=== PATIENT | male | born 1970 | race American Indian/Alaskan Native ===

== ENCOUNTER 2017-07-22 21:56 | Emergency (ER) | payer MEDICAID, OTHER ==
[2017-07-22] MEDS ORDERED: LORazepam 2 MG/ML Syringe ONE (22:07)
[2017-07-22] MEDS ORDERED: LORazepam 2 MG/ML Syringe IM ONE ×3 (22:11→22:15)
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
[2017-07-22 22:37] LABS: CHLORIDE,CL 101 mmol/L (101-111); SODIUM,NA 138 mmol/L (135-145)
[2017-07-22] MEDS ORDERED: Midazolam 1 MG/ML 2 ML SDV IVPUSH ONE (23:19)
[2017-07-23] MEDS ORDERED: Flumazenil 0.1 MG/ML 5 ML MDV IVPUSH ONE (00:52)
== END 2017-07-23 03:08 ==
LOC: EDBD → DL.ED 21:56 → EDUNIT# 22:04 → DL.ED 22:04
DX: S01.511A Laceration without foreign body of lip, initial encounter (principal); R68.84 Jaw pain; F10.129 Alcohol abuse with intoxication, unspecified; Y90.8 Blood alcohol level of 240 mg/100 ml or more; W17.89XA Other fall from one level to another, initial encounter; W22.8XXA Striking against or struck by other objects, initial encounter
CPT/HCPCS: 36415; 70450; 70486; 72125; 80053; 85025; 96374; 96375; 99285; G0480; J2060; J2250; J3490

== ENCOUNTER 2020-06-26 23:49 | Emergency (ER) | payer MEDICAID, OTHER ==
[2020-06-27 00:07] VITALS: PULSE 73
[2020-06-27] MEDS ORDERED: MVI, Adult with Vitamin K 10 ML, Folic Acid 1 MG, Thiamine 100 MG in Lactated Ringers 1... IV ONE ×4 (00:10)
[2020-06-27 00:28] VITALS: BP 109/56
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
== END 2020-06-27 00:35 | disposition left against medical advice (07) ==
LOC: DL.ED 23:49
DX: F10.129 Alcohol abuse with intoxication, unspecified (principal)
CPT/HCPCS: 99283

== ENCOUNTER 2020-09-07 01:27 | Emergency (ER) | payer MEDICAID ==
[2020-09-07 01:50] VITALS: BP 116/73; PULSE 76
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
[2020-09-07] MEDS ORDERED: Lidocaine 2% with EPINEPHrine 1:200,000 20 ML SDV INJECT ONE (02:24)
== END 2020-09-07 02:45 | disposition home or self-care (01) ==
LOC: DL.ED 01:27
DX: S01.01XA Laceration without foreign body of scalp, initial encounter (principal); Y04.2XXA Assault by strike against or bumped into by another person, initial encounter
CPT/HCPCS: 12001; 70450; 72125; 99283; 99284-25

== ENCOUNTER 2020-09-22 11:38 | Emergency (ER) | payer MEDICAID ==
[2020-09-22 11:43] VITALS: BP 133/95; PULSE 65
--- NOTE | 2020-09-22 14:51 | EDM.PDOC ---
ED HPI GENERAL MEDICAL PROBLEM - General Chief Complaint: Laceration Stated Complaint: IN BY AMBULANCE Time Seen by Provider: 09/22/20 11:42 Source of Information: Reports: Patient, EMS, EMS Notes Reviewed History Limitations: Reports: No Limitations - History of Present Illness INITIAL COMMENTS - FREE TEXT/NARRATIVE: Patient is a 49-year-old male who presents to ER by [facility] with complaint of bleeding from head wound. Patient was seen in ER yesterday for a laceration to the left side of head, which was sutured. Patient presented to [facility] after bleeding he couldn't control. Clinic sent him by ambulance. Patient states he did not hit his head or have any new injury. Bleeding controlled upon arrival to ER. Onset: Unknown/Unsure Duration: Constant Location: Reports: Head Quality: Reports: Ache Severity: Mild Improves with: Reports: None Worsens with: Reports: None Associated Symptoms: Reports: No Other Symptoms Treatments HEARING AND SPEECH ASSISTANT: Reports: Other (see below) Other Treatments HEARING AND SPEECH ASSISTANT: head wrapped with 4x4 and kerlix Shoulder Pain Score (Numeric/FACES): 6 - Related Data Allergies Allergy/AdvReac Type Severity Reaction Status Date / Time No Known Allergies Allergy Verified 09/22/20 11:49 Home Meds: Home Meds . [No Known Home Meds] 12/06/14 [History] Past Medical History - Past Health History Medical/Surgical History: Denies Medical/Surgical History HEENT History: Reports: None Cardiovascular History: Reports: None Respiratory History: Reports: None Gastrointestinal History: Reports: None Genitourinary History: Reports: None Musculoskeletal History: Reports: Fracture Other Musculoskeletal History: hand Neurological History: Reports: None Psychiatric History: Reports: None Endocrine/Metabolic History: Reports: None Hematologic History: Reports: None Immunologic History: Reports: None Oncologic (Cancer) History: Reports: None Dermatologic History: Reports: None - Infectious Disease History Infectious Disease History: Reports: None - Past Surgical History Head Surgeries/Procedures: Reports: None GI Surgical History: Reports: Appendectomy Social & Family History - Family History Family Medical History: Unobtainable - Tobacco Use Tobacco Use Status *Q: Unknown Ever Used Tobacco - Caffeine Use Caffeine Use: Reports: Coffee, Soda - Recreational Drug Use Recreational Drug Use: No - Living Situation & Occupation Living situation: Reports: with Family ED ROS GENERAL - Review of Systems Review Of Systems: Comprehensive ROS is negative, except as noted in HPI. ED EXAM, SKIN/RASH Exam: See Below Exam Limited By: No Limitations General Appearance: Alert, WD/WN, No Apparent Distress Eye Exam: Bilateral Eye: EOMI, Normal Inspection, PERRL Ears: Normal External Exam, Normal Canal, Hearing Grossly Normal, Normal TMs Nose: Normal Inspection, Normal Mucosa, No Blood Throat/Mouth: Normal Inspection, Normal Lips, Normal Teeth, Normal Gums, Normal Oropharynx, Normal Voice, No Airway Compromise Head: Atraumatic, Normocephalic Neck: Normal Inspection, Supple, Non-Tender, Full Range of Motion Respiratory/Chest: No Respiratory Distress Cardiovascular: Normal Peripheral Pulses, Regular Rate, Rhythm, No Edema, No Gallop, No JVD, No Murmur, No Rub GI/Abdominal: Normal Bowel Sounds, Soft, Non-Tender, No Organomegaly, No Distention, No Abnormal Bruit, No Mass (Male) Exam: Deferred Rectal (Males) Exam: Deferred Back Exam: Normal Inspection, Full Range of Motion, NT Extremities: Normal Inspection, Normal Range of Motion, Non-Tender, No Pedal Edema, Normal Capillary Refill Neurological: Alert, Oriented, CN II-XII Intact, Normal Cognition, Normal Gait, Normal Reflexes, No Motor/Sensory Deficits Psychiatric: Normal Affect, Normal Mood Skin: Other (gaping wound--sutures torn to laceration to left upper forehead. ) Course - Vital Signs Last Recorded V/S: Last Vital Signs Temp 97.4 F 09/22/20 11:38 Pulse 65 09/22/20 11:38 Resp 18 09/22/20 11:38 BP 133/95 H 09/22/20 11:38 Pulse Ox 98 09/22/20 11:38 - Orders/Labs/Meds Labs: Laboratory Tests 09/22/20 Range/Units 13:51 WBC 10.7 H (5.0-10.0) 10^3/uL RBC 4.68 (4.6-6.2) 10^6/uL Hgb 15.2 D (14.0-18.0) g/dL Hct 44.4 (40.0-54.0) % MCV 94.9 D (80-100) fL MCH 32.5 (27.0-34.0) pg MCHC 34.2 (33.0-35.0) g/dL Plt Count 275 (150-450) 10^3/uL - Re-Assessments/Exams Free Text/Narrative Re-Assessment/Exam: 09/23/20 10:08 Clotted blood removed from the wound. Sutures were torn out of one side of the wound, so sutures were removed. Steri strips applied and wound covered. No bleeding at that time. Departure - Departure Time of Disposition: 14:50 Disposition: Home, Self-Care 01 Condition: Good Clinical Impression: Open wound - Discharge Information *PRESCRIPTION DRUG MONITORING PROGRAM REVIEWED*: No *COPY OF PRESCRIPTION DRUG MONITORING REPORT IN PATIENT KATIE: No Instructions: Laceration Care, Adult, [id number] Referrals: Vignesh Jesus [Primary Care Provider] - Forms: ED Department Discharge Additional Instructions: Follow up with your primary care facility Hold pressure if your head starts to bleed again Return to the ER with any further problems Sepsis Event Note (ED) - Evaluation Sepsis Screening Result: No Definite Risk
== END 2020-09-22 15:15 | disposition home or self-care (01) ==
LOC: DL.ED 11:38
DX: S01.81XA Laceration without foreign body of other part of head, initial encounter (principal); W26.8XXA Contact with other sharp object(s), not elsewhere classified, initial encounter
CPT/HCPCS: 36415; 85027; 99282; 99284

== ENCOUNTER 2021-07-29 04:09 | Emergency (ER) | payer MEDICAID ==
[2021-07-29 04:33] VITALS: BP 129/107; PULSE 83
[2021-07-29] MEDS ORDERED: MVI, Adult with Vitamin K 10 ML, Folic Acid 1 MG, Thiamine 100 MG in Lactated Ringers 1... IV ONE ×4 (04:45)
[2021-07-29] MEDS ORDERED: fentaNYL 100 MCG/2 ML SDV IVPUSH ONE (05:05)
[2021-07-29 05:06] LABS: ANION GAP 17.2 mEq/L (7-13); CHLORIDE,CL 108 mmol/L (98-107); SODIUM,NA 145 mmol/L (136-145)
[2021-07-29 06:08] LABS: MDMA (ECSTASY), URINE POSITIVE (NEGATIVE); METHAMPHETAMINES,URINE POSITIVE (NEGATIVE)
[2021-07-29 06:09] LABS: AMPHETAMINES,URINE NEGATIVE (NEGATIVE); BARBITURATES,URINE NEGATIVE (NEGATIVE); BENZODIAZEPINE,URINE NEGATIVE (NEGATIVE); METHADONE,URINE NEGATIVE (NEGATIVE); OPIATES,URINE NEGATIVE (NEGATIVE); OXYCODONE,URINE NEGATIVE (NEGATIVE); PHENCYCLIDINE,URINE NEGATIVE (NEGATIVE); TCA,URINE NEGATIVE (NEGATIVE)
== END 2021-07-29 12:01 | disposition home or self-care (01) ==
LOC: MERGE 04:09 → DL.ED 04:09
DX: S30.0XXA Contusion of lower back and pelvis, initial encounter (principal); F10.129 Alcohol abuse with intoxication, unspecified; Z72.0 Tobacco use; Y90.8 Blood alcohol level of 240 mg/100 ml or more; Z79.82 Long term (current) use of aspirin; W00.9XXA Unspecified fall due to ice and snow, initial encounter
CPT/HCPCS: 36415; 72131; 80053; 80305-QW; 80307; 81001; 82150; 83690; 85025; 96365; 96375; 99284-25; J3010; J3411; J3490; J7120

== ENCOUNTER 2021-09-03 01:52 | Emergency (ER) | payer MEDICAID ==
[2021-09-03 01:56] VITALS: BP 141/85; PULSE 70
[2021-09-03 02:23] LABS: ANION GAP 15.4 mEq/L (7-13); CHLORIDE,CL 107 mmol/L (98-107); SODIUM,NA 143 mmol/L (136-145)
== END 2021-09-03 02:42 ==
LOC: DL.ED 01:52
DX: F10.129 Alcohol abuse with intoxication, unspecified (principal); Z79.82 Long term (current) use of aspirin; Y90.8 Blood alcohol level of 240 mg/100 ml or more
CPT/HCPCS: 36415; 80053; 80307; 85025; 99282; 99283

== ENCOUNTER 2021-10-19 16:32 | Emergency (ER) | payer MEDICAID ==
[2021-10-19 16:45] VITALS: BP 100/76; PULSE 87
== END 2021-10-19 16:56 | disposition left against medical advice (07) ==
LOC: DL.ED 16:32
DX: S09.90XA Unspecified injury of head, initial encounter (principal); Z53.21 Procedure and treatment not carried out due to patient leaving prior to being seen by health care provider

== ENCOUNTER 2024-07-13 13:37 | Emergency (ER) | payer MEDICAID ==
[2024-07-13] MEDS: Iopamidol 612 MG/ML 100 ML Bottle IVPUSH ONE (13:19)
[2024-07-13] MEDS: LORazepam 2 MG/ML SDV IM ONE (13:22)
[2024-07-13] MEDS: diphenhydrAMINE 50 MG/ML SDV ONE (13:32)
[2024-07-13] MEDS: Haloperidol Lactate 5 MG/ML SDV ONE (13:32)
[~2024-07-13 13:37] MED LIST: Sodium Chloride 0.9% 10 ML Syringe FLUSH PRN
[2024-07-13] MEDS: Midazolam 5 MG/ML 10 ML MDV IV ONE (13:51)
[2024-07-13] MEDS: Midazolam 1 MG/ML 2 ML SDV ONE (13:51)
[2024-07-13] MEDS: diphenhydrAMINE 50 MG/ML SDV IM ONE (14:18)
[2024-07-13] MEDS: Haloperidol Lactate 5 MG/ML SDV IM ONE (14:18)
[2024-07-13] MEDS: LORazepam 2 MG/ML SDV IVPUSH ONE (14:20)
[2024-07-13 14:37] LABS: BASOPHILS PERCENT AUTO 0.6 % (0.0-1.0); EOSINOPHILS PERCENT AUTO 1.9 % (1.0-3.0); HEMATOCRIT 40.2 % (40.0-54.0); HEMOGLOBIN 13.2 g/dL (14.0-18.0); MEAN CORPUSCULAR HEMOGLOBIN 32.5 pg (27.0-34.0); MEAN CORPUSCULAR HGB CONC 32.8 g/dL (33.0-35.0); MONOCYTES PERCENT AUTO 5.5 % (2-8); PLATELET COUNT,PLT 210 10^3/uL (150-450); RED BLOOD CELL COUNT 4.06 10^6/uL (4.6-6.2)
[2024-07-13] MEDS: MVI, Adult with Vitamin K 10 ML, Folic Acid 1 MG, Thiamine 100 MG in Lactated Ringers 1... IV ONE (14:51)
[2024-07-13 14:57] LABS: PROTHROMBIN TIME 10.4 SEC (9.0-12.0); PTT,PARTIAL THROMBOPLSTIN TIME 26.2 SEC (22.0-34.0)
[2024-07-13 14:59] LABS: ALANINE AMINOTRANSFERASE,ALT 105 U/L (16-63); ALBUMIN 2.9 g/dL (3.4-5.0); ALKALINE PHOSPHATASE 72 U/L (46-116); ANION GAP 13.8 mEq/L (7-13); ASPARTATE AMNIOTRANSFERASE,AST 59 U/L (15-37); BILIRUBIN TOTAL 0.2 mg/dL (0.2-1.0); BLOOD UREA NITROGEN,BUN 10 mg/dL (7-18); BUN/CREATININE RATIO 11.4 (No establ ref range); CALCIUM 8.5 mg/dL (8.5-10.1); CARBON DIOXIDE,CO2 28 mmol/L (21-32); CHLORIDE,CL 112 mmol/L (98-107); CREATININE 0.88 mg/dL (0.70-1.30); GLUCOSE RANDOM 102 mg/dL (70-99); LIPASE 28 U/L (16-77); POTASSIUM,K 3.8 mmol/L (3.5-5.1); PROTEIN TOTAL,TP 6.8 g/dL (6.4-8.2); SODIUM,NA 150 mmol/L (136-145)
[2024-07-13 15:01] LABS: A/G RATIO 0.74; ESTIMATED GFR 103 mL/min (>=60); ETHANOL BLOOD MEDICAL 380 mg/dL (0)
[2024-07-13] MEDS: Diphtheria,Pertussis(Acell),Tetanus Vaccine 0.5 ML Syringe IM ONE (18:33)
[2024-07-13] MEDS ORDERED: Sodium Chloride 0.9% 1,000 ML IV ONE (21:12)
[2024-07-13 21:49] LABS: AMPHETAMINES,URINE NEGATIVE (NEGATIVE); BARBITURATES,URINE NEGATIVE (NEGATIVE); BENZODIAZEPINE,URINE POSITIVE (NEGATIVE); MDMA (ECSTASY), URINE NEGATIVE (NEGATIVE); METHADONE,URINE NEGATIVE (NEGATIVE); METHAMPHETAMINES,URINE NEGATIVE (NEGATIVE); OPIATES,URINE NEGATIVE (NEGATIVE); OXYCODONE,URINE NEGATIVE (NEGATIVE); PHENCYCLIDINE,URINE NEGATIVE (NEGATIVE); TCA,URINE NEGATIVE (NEGATIVE)
[2024-07-13 22:27] LABS: A/G RATIO 0.79; ALANINE AMINOTRANSFERASE,ALT 103 U/L (16-63); ALKALINE PHOSPHATASE 77 U/L (46-116); ANION GAP 4.8 mEq/L (7-13); ASPARTATE AMNIOTRANSFERASE,AST 61 U/L (15-37); BILIRUBIN TOTAL 0.2 mg/dL (0.2-1.0); BLOOD UREA NITROGEN,BUN 8 mg/dL (7-18); BUN/CREATININE RATIO 9.5 (No establ ref range); CALCIUM 8.7 mg/dL (8.5-10.1); CARBON DIOXIDE,CO2 29 mmol/L (21-32); CHLORIDE,CL 109 mmol/L (98-107); CREATININE 0.84 mg/dL (0.70-1.30); ESTIMATED GFR 105 mL/min (>=60); ETHANOL BLOOD MEDICAL 211 mg/dL (0); GLUCOSE RANDOM 82 mg/dL (70-99); POTASSIUM,K 3.8 mmol/L (3.5-5.1); PROTEIN TOTAL,TP 6.8 g/dL (6.4-8.2); SODIUM,NA 139 mmol/L (136-145)
== END 2024-07-13 23:12 | disposition home or self-care (01) ==
LOC: DL.ED 13:37
DX: E86.0 Dehydration (principal); F10.120 Alcohol abuse with intoxication, uncomplicated; E87.0 Hyperosmolality and hypernatremia; F12.10 Cannabis abuse, uncomplicated; R79.89 Other specified abnormal findings of blood chemistry; Z23 Encounter for immunization; Z79.82 Long term (current) use of aspirin; Y90.9 Presence of alcohol in blood, level not specified
CPT/HCPCS: 36415; 70450; 70486; 71045; 71260; 72125; 72170; 74177; 80053; 80305; 80307; 83690; 85025; 85610; 85730; 90471; 90715; 93005; 93010; 94762; 96365; 96375; 99284; 99285; J1200; J1630; J2060; J2250; J3411; J7120; Q9967; J3490

== ENCOUNTER 2025-02-05 19:06 | Emergency (ER) | payer MEDICAID ==
[2025-02-05 19:35] LABS: BASOPHILS PERCENT AUTO 0.3 % (0.0-1.0); EOSINOPHILS PERCENT AUTO 0.0 % (1.0-3.0); LYMPHOCYTES PERCENT AUTO 29.4 % (20.5-50.1); MONOCYTES PERCENT AUTO 7.2 % (2-8); NEUTROPHILS PERCENT AUTO 63.1 % (42.2-75.2); PLATELET COUNT,PLT 199 10^3/uL (150-450); RED BLOOD CELL COUNT 4.79 10^6/uL (4.6-6.2); WHITE BLOOD CELL COUNT,WBC 7.5 10^3/uL (5.0-10.0)
[2025-02-05 19:56] LABS: A/G RATIO 0.8; ALANINE AMINOTRANSFERASE,ALT 192.0 U/L (16-63); ASPARTATE AMNIOTRANSFERASE,AST 190.0 U/L (15-37); BILIRUBIN TOTAL 0.5 mg/dL (0.2-1.0); BLOOD UREA NITROGEN,BUN 17.0 mg/dL (7-18); CARBON DIOXIDE,CO2 23.0 mmol/L (21-32); CHLORIDE,CL 101.0 mmol/L (98-107); CREATININE 0.82 mg/dL (0.70-1.30); EST CRCL DRUG DOSING (CG) 83.85 mL/min; GLUCOSE RANDOM 158.0 mg/dL (70-99); POTASSIUM,K 4.0 mmol/L (3.5-5.1); PROTEIN TOTAL,TP 8.2 g/dL (6.4-8.2); SODIUM,NA 140.0 mmol/L (136-145)
[2025-02-05 19:57] LABS: ESTIMATED GFR 105.0 mL/min (>=60)
[2025-02-05 19:58] LABS: ETHANOL BLOOD MEDICAL 422.0 mg/dL (0)
[2025-02-05] MEDS: fentaNYL 25 MCG/HR Transdermal Patch TRDERM ONE (20:15)
[2025-02-05 21:39] VITALS: BP 138/72; PULSE 100
== END 2025-02-05 21:00 | disposition left against medical advice (07) ==
LOC: DL.ED 19:06
DX: M53.3 Sacrococcygeal disorders, not elsewhere classified (principal); M54.50 Low back pain, unspecified; Z90.49 Acquired absence of other specified parts of digestive tract; Z79.82 Long term (current) use of aspirin; Z53.20 Procedure and treatment not carried out because of patient's decision for unspecified reasons
CPT/HCPCS: 36415; 72131; 72192; 80053; 80307; 83735; 85025; 96374; 99284; J2270; 99283